=== PATIENT | male | born 1950 | race African-American/Black ===

== ENCOUNTER 2024-01-22 05:19 | Day surgery (SDC) | payer OTHER ==
[2024-01-21 15:04] VITALS: BMI 29.7
[2024-01-22] MEDS ORDERED: Heparin 10,000 UNITS/ 10 ML VIAL ONE ×2 (06:14→08:45)
[2024-01-22] MEDS ORDERED: Verapamil 5 MG/2 ML VIAL ONE (06:14)
[2024-01-22] MEDS ORDERED: Nitroglycerin 50 MG/250 ML BOT 250 ML ONE (06:14)
[2024-01-22 06:31] LABS: #Basophils 0.03 10x3/uL (0.0-0.2); %Basophils 0.6 % (0.0-1.0); %Eosinophils 3.3 % (0.0-10.0); %Lymphocytes 28.8 % (21.0-51.0); %Monocytes 9.2 % (0.0-10.0); %Neutrophils 57.7 % (42.0-75.0); Hematocrit 42.5 % (42.0-52.0); Hemoglobin 13.4 g/dL (14.0-18.0); Mean Corpuscular HGB CONC 31.5 g/dL (32.0-36.0); Mean Corpuscular Hemoglobin 28.5 pg (27.0-31.0); Mean Corpuscular Volume 90.2 fL (78.0-98.0); Mean Platelet Volume 9.8 fL (7.4-10.4); Platelet Count 148 10x3/uL (130-400); RBC Distribution Width 17.9 % (11.5-14.5); Red Blood Cell (RBC) Count 4.71 mill/uL (4.70-6.10)
[2024-01-22 06:50] LABS: ALT (SGPT) 311 U/L (8-55); AST (SGOT) 323 U/L (5-34); Albumin 3.1 g/dL (3.4-4.8); Alkaline Phosphatase 258 U/L (40-110); Anion Gap 8 mmol/L (10-20); BUN (Urea Nitrogen) 19 mg/dL (8.4-25.7); Bilirubin, Total 0.6 mg/dL (0.2-1.2); Calc. Creatinine Clearance 83 mL/min (70-130); Calcium 8.9 mg/dL (7.8-10.44); Carbon Dioxide 26 mmol/L (23-31); Chloride 108 mmol/L (98-107); Estimated GFR 70; Globulin 3.7 g/dL (2.4-3.5); Glucose 110 mg/dL (83-110); Potassium 3.8 mmol/L (3.5-5.1); Protein, Total 6.8 g/dL (5.8-8.1); Sodium 138 mmol/L (136-145)
[2024-01-22] MEDS ORDERED: fentaNYL 50 mcg/mL 1 mL Vial ONE ×3 (07:45→21:04)
[2024-01-22] MEDS ORDERED: Midazolam HCl 2 mg/2 ml Vial ONE (07:46)
[2024-01-22] MEDS ORDERED: Adenosine 6 mg (2 mL) VIAL ONE (07:55)
[2024-01-22] MEDS ORDERED: Clopidogrel Bisulfate 300 MG TAB ONE (08:53)
[2024-01-22] MEDS ORDERED: hydrALAZINE 20 MG/ML VIAL ONE (11:14)
== END 2024-01-22 22:00 | disposition home or self-care (01) ==
LOC: CCL 05:19
PROVIDERS: ATTEND Internal Medicine Cardiovascular Disease
PROC: 4A023N7 Measurement of Cardiac Sampling and Pressure, Left Heart, Percutaneous Approach (ICD-10-PCS; principal; 2024-01-22)
DX: I25.10 Atherosclerotic heart disease of native coronary artery without angina pectoris (principal); I25.5 Ischemic cardiomyopathy; I10 Essential (primary) hypertension; I42.9 Cardiomyopathy, unspecified; Z79.899 Other long term (current) drug therapy
CPT/HCPCS: 36556; 80053; 85025; 85347 ×2; 93005; 93458; C1725; C1760; C1769 ×4; C1874; C1887 ×2; C1894 ×2; C9600; J0360; J1644; J2250; J3010; 92928; 93010; 99152; 99153; J0153